=== PATIENT | male | born 1940 | race Caucasian/White ===

== ENCOUNTER 2017-06-28 12:39 | Emergency (ER) | payer MEDICARE, BC ==
[2017-06-28] MEDS ORDERED: Tetan/Diph/Pertus SYR(Tdap)* 0.5 ML SYR(BOOSTRIX) use SYR IM ONE (13:31)
[2017-06-28] MEDS ORDERED: Amoxicillin/Clavulanate TAB* 875 MG PO ONE (13:35)
--- NOTE | 2017-06-28 14:01 | RAD ---
HISTORY: Penetrating trauma, left wrist COMPARISONS: None VIEWS: 4, Frontal, lateral, and oblique views of the left hand. Evaluation of the fourth digit as noted by metallic jewelry. FINDINGS: BONE DENSITY: Normal. BONES: There is no displaced fracture. JOINTS: There is no arthropathy. ALIGNMENT: There is no dislocation. SOFT TISSUES: Unremarkable. OTHER FINDINGS: None. IMPRESSION: NO ACUTE OSSEOUS INJURY. IF SYMPTOMS PERSIST, RECOMMEND REPEAT IMAGING.
--- NOTE | 2017-06-28 14:58 | UC ---
Bite Injury/Animal HPI - HPI Summary HPI Summary: ONE [address] [employer] LEFT HAND AND INDEX FINGER BITTEN BY RELATIVE'S DOG. TETANUS STATUS UNKNOWN. DOG AVAILABLE FOR OBSERVATION. - History of Current Complaint Chief Complaint: UCBiteInjury Stated Complaint: DOG BITE Time Seen by Provider: 06/28/17 13:24 Hx Obtained From: Patient Severity Currently: Moderate Severity Initially: Moderate Onset/Duration: Sudden Onset, Lasting Minutes, Still Present Type of Bite: Pet Has Animal Been Immunized?: Yes Character: Puncture, Full-Thickness Aggravating Factor(s): Nothing Alleviating Factor(s): Nothing Associated Signs And Symptoms: Positive: Drainage Hx of Bite: Provoked by: Animal Available for Observation: Yes Animal Control Notified: Yes - Allergies/Home Medications Allergies/Adverse Reactions: Allergies Allergy/AdvReac Type Severity Reaction Status Date / Time No Known Allergies Allergy Verified 06/28/17 13:01 Home Medications: Home Medications Lisinopril/HCTZ 20/12.5(NF) [Zestoretic 20/12.5(NF)] 1 tab PO DAILY 06/28/17 [ History Confirmed 06/28/17] PMH/Surg Hx/FS Hx/Imm Hx Previously Healthy: Yes - Surgical History Surgical History: Yes Surgery Procedure, Year, and Place: Hernia 1959, Back surgery 1982 (herniated disc), Right shoulder rotator cuff 2004, Left shoulder rotator cuff 2007. - Family History Known Family History: Negative: Blood Disorder - Social History Occupation: Retired Lives: With Family Alcohol Use: None Substance Use Type: None Smoking Status (MU): Light Every Day Tobacco Smoker Type: Cigars Amount Used/How Often: OCCASSIONAL CIGAR - Immunization History Most Recent Tetanus Shot: UNSURE Review of Systems Constitutional: Negative Skin: Other - PUNCTURE WOUNDS LEFT HAND AND SECOND FINGER Eyes: Negative ENT: Negative Respiratory: Negative Cardiovascular: Negative Gastrointestinal: Negative Genitourinary: Negative Motor: Negative Neurovascular: Negative Musculoskeletal: Arthralgia, Myalgia Neurological: Negative Psychological: Negative All Other Systems Reviewed And Are Negative: Yes Physical Exam Triage Information Reviewed: Yes Appearance: Well-Appearing, Well-Nourished, Pain Distress Vital Signs: Initial Vital Signs Temp 99.0 F 06/28/17 13:07 Pulse 87 06/28/17 13:07 Resp 16 06/28/17 13:07 BP 147/94 06/28/17 13:07 Pulse Ox 99 06/28/17 13:07 Vital Signs Reviewed: Yes Eye Exam: Normal ENT Exam: Normal ENT: Positive: Normal ENT inspection, Hearing grossly normal, Pharynx normal, TMs normal Dental Exam: Normal Neck exam: Normal Neck: Positive: Supple, Nontender, No Lymphadenopathy Respiratory Exam: Normal Respiratory: Positive: Chest non-tender, Lungs clear, Normal breath sounds, No respiratory distress Cardiovascular Exam: Normal Cardiovascular: Positive: RRR, No Murmur, Pulses Normal Abdominal Exam: Normal Musculoskeletal: Positive: Strength Intact, ROM Intact, No Edema, Other: - PUNCTURE WOUNDS LEFT HAND AND LEFT SECOND FINGER Neurological Exam: Normal Psychological Exam: Normal Psychological: Positive: Normal Response To Family Skin: Positive: Other - PUNCTURE WOUNDS LEFT HAND AND LEFT SECOND FINGER Bite Injury Course/Dx - Differential Dx/Diagnosis Differential Diagnosis/HQI/PQRI: Laceration Provider Diagnoses: DOG BITE:PUNCTURE WOUNDS LEFT HAND AND LEFT SECOND FINGER; TETANUS PROPHYLAXIS - Physician Notifications Instructed by Provider To: Have Pt Call For Appt. Discharge - Discharge Plan Condition: Stable Disposition: HOME Prescriptions: Amoxicillin/Clavulanate TAB* [Augmentin TAB 875*] 875 mg PO BID #20 tab HYDROcodone/ACETAMIN 5-325 MG* [[place] 5-325 TAB*] 1 tab PO Q8H PRN #12 tab MDD THREE TABS PRN Reason: Pain Patient Education Materials: Animal Bite (ED) Referrals: Kezia Thomson MD [Medical Doctor] - If Needed Fransisco Mahajan MD [Primary Care Provider] - If Needed
[2017-06-28 15:03] VITALS: BP 140/85
== END 2017-06-28 15:06 | disposition home or self-care (01) ==
LOC: UCEAST 12:39
DX: S61.432A Puncture wound without foreign body of left hand, initial encounter (principal); S61.231A Puncture wound without foreign body of left index finger without damage to nail, initial encounter; W54.0XXA Bitten by dog, initial encounter; Y93.9 Activity, unspecified; Y92.9 Unspecified place or not applicable; Z23 Encounter for immunization; F17.210 Nicotine dependence, cigarettes, uncomplicated
CPT/HCPCS: 90471; 90715; 99212; A9270-GY; G0463

== ENCOUNTER 2017-07-03 17:49 | Emergency (ER) | payer MEDICARE, BC ==
[2017-07-03 18:12] VITALS: BP 127/85
--- NOTE | 2017-07-03 19:32 | UC ---
Vikas Marks Thomas, scribed for Debbi Kebede MD on 07/03/17 at 1922 . Bite Injury/Animal HPI - HPI Summary HPI Summary: The pt is a 76 y/o M presenting to [facility] in need of a re-check of a dog bite on his left forearm. He was bitten by a relatives dog on 06/28/17 and he presented to [facility], where he was seen by PARMINDER Dhaliwal. At this visit on , he was given a tetanus vaccination and he was prescribed Augmentin, which is currently taking. Pt had xray which was neg for acute fx. Yesterday, the patient took off the wound dressing and he presents to [facility] today because he is concerned that the region has become infected because he noticed yellow bubbles to the bite region when he removed the bandage. Pt states he had abx ointment on wound when he saw the bubbles. Since resolved. He also complains of 2/10 soreness to the bite region with movement. The pain is aggravated and alleviated by nothing. The patient has treated the pain with [place] at time of injury but has not taken since.. Pt additionally c/o a subungual hematoma to his left index finger. Pt with LHD. Not immunocompromised. PMHx: GERD, HTN. PSHx: herniated discs repair, rotator cuff repairs on both shoulders. SHx: smoking, no alcohol use, no illicit drug use, retired, lives with family. FHx: negative for blood disorder. The patients PCP is Dr. Mahajan. He is left- handed. Patients medication reviewed this visit. - History of Current Complaint Chief Complaint: UCBiteInjury Stated Complaint: RECHECK DOG BITE Hx Obtained From: Patient Pain Intensity: 2 Pain Scale Used: 0-10 Numeric Onset/Duration: Lasting Days - 5, Still Present, Worse Since - took wound dressing off yesterday Type of Bite: Pet - dog Character: Puncture, Abrasion/Laceration Aggravating Factor(s): Nothing Alleviating Factor(s): Nothing Associated Signs And Symptoms: Negative: Fever, Drainage - Allergies/Home Medications Allergies/Adverse Reactions: Allergies Allergy/AdvReac Type Severity Reaction Status Date / Time No Known Allergies Allergy Verified 06/28/17 13:01 PMH/Surg Hx/FS Hx/Imm Hx Previously Healthy: No Cardiovascular History: Hypertension GI/ History: Gastroesophageal Reflux - Surgical History Surgical History: Yes Surgery Procedure, Year, and Place: Hernia 1959, Back surgery 1982 (herniated disc), Right shoulder rotator cuff 2004, Left shoulder rotator cuff 2007. - Family History Known Family History: Negative: Blood Disorder - Social History Alcohol Use: None Substance Use Type: None Smoking Status (MU): Light Every Day Tobacco Smoker Type: Cigars Amount Used/How Often: OCCASSIONAL CIGAR - Immunization History Most Recent Tetanus Shot: 06/28/17 Review of Systems Constitutional: Negative, Other - NEG: fever Skin: Other - POS: subungual hematoma to index finger of left hand, soreness to bite region, bubbling to bite region Eyes: Negative ENT: Negative Respiratory: Negative Cardiovascular: Negative Gastrointestinal: Negative Genitourinary: Negative Motor: Negative Neurovascular: Negative Musculoskeletal: Negative Neurological: Negative Psychological: Negative All Other Systems Reviewed And Are Negative: Yes Physical Exam Triage Information Reviewed: Yes Appearance: Well-Appearing, No Pain Distress, Well-Nourished Vital Signs: Initial Vital Signs Temp 98.0 F 07/03/17 18:08 Pulse 77 07/03/17 18:08 Resp 18 07/03/17 18:08 BP 127/85 07/03/17 18:08 Pulse Ox 97 07/03/17 18:08 Vital Signs Reviewed: Yes ENT: Positive: Hearing grossly normal Neck: Positive: Supple, Nontender Respiratory: Positive: Chest non-tender, Lungs clear, Normal breath sounds, No respiratory distress, No accessory muscle use Cardiovascular: Positive: Other: - 2+ radial, ulnar CBT < 2 sec Musculoskeletal: Positive: Other: - + flex/ext elbow, wrist 5/5 grasp No pain with palpation along phalanges, carpals, metacarpals. Mild discomfort with direct palpation of distal radius Neurological Exam: Normal Neurological: Positive: Other: - + thumb up, a ok, finger spread, finger cross Psychological Exam: Normal Psychological: Positive: Normal Response To Family Skin: Positive: Other - pt with multiple, well healing abraison, puncture wounds. No erythema no fluctuance no drainage many wounds scabbed pt with resolving ecchymosis volar distal wrist Bite Injury Course/Dx - Course Course Of Treatment: The patient presents to [facility] in need of a wound recheck of a dog bite that occurred on 06/28/17. This bite was evaluated on 06/28/17 at [facility] and the patient is on a course of Augmentin, which he was instructed to continue taking. Pt did not follow up with pcp or hand as referred. Pt with well hearing wounds. mild edema. no concern for infection. will give splint for support. apap prn. recommend f/u with pcp. return precautions discussed. pt in agreement with plan - Differential Dx/Diagnosis Provider Diagnoses: wound check without concern for infeciton Discharge - Discharge Plan Condition: Stable Disposition: HOME Patient Education Materials: Animal Bite (ED) Referrals: Fransisco Mahajan MD [Primary Care Provider] - Additional Instructions: continue with your antibiotics as previously prescribed okay to take tylenol as needed for pain wear splint for comfort and support okay to leave wounds open to air when home and in a non-dirty environment contact your doctor or return with questions or concerns The documentation as recorded by the Vikas hamilton Thomas accurately reflects the service I personally performed and the decisions made by , Debbi Kebede MD.
== END 2017-07-03 19:30 | disposition home or self-care (01) ==
LOC: UCEAST 17:49
DX: S51.832D Puncture wound without foreign body of left forearm, subsequent encounter (principal); W54.0XXD Bitten by dog, subsequent encounter; I10 Essential (primary) hypertension; K21.9 Gastro-esophageal reflux disease without esophagitis; F17.210 Nicotine dependence, cigarettes, uncomplicated
CPT/HCPCS: 99213; G0463